=== PATIENT | male | born 1995 | race Two or more races ===

== ENCOUNTER 2019-10-18 20:07 | Emergency (ER) | payer OTHER, MEDICAID ==
[~2019-10-18] VITALS: Ht 165.1 cm; Wt 68.0 kg
[2019-10-18 20:14] VITALS: BP 119/74
[2019-10-19] MEDS ORDERED: IBUPROFEN 800 MG TAB PO ONE
[2019-10-19] MEDS ORDERED: ACETAMINOPHEN 500 MG TAB PO ONE
== END 2019-10-19 02:27 | disposition home or self-care (01) ==
LOC: EDBD 20:07 → ER 20:18
DX: S02.32XA Fracture of orbital floor, left side, initial encounter for closed fracture (principal); S01.112A Laceration without foreign body of left eyelid and periocular area, initial encounter; S01.412A Laceration without foreign body of left cheek and temporomandibular area, initial encounter; Y08.89XA Assault by other specified means, initial encounter; Y93.89 Activity, other specified; Y99.8 Other external cause status; Y92.89 Other specified places as the place of occurrence of the external cause
CPT/HCPCS: 12014; 70450; 70486; 72125